=== PATIENT | female | born 1990 | race Caucasian/White ===

== ENCOUNTER 2021-07-22 19:25 | Emergency (ER) | payer OTHER, SELFPAY ==
--- NOTE | ~2021-07-22 | CT_ITS ---
EXAMINATION: CT HEAD WITHOUT CONTRAST CLINICAL INFORMATION: Headache COMPARISON: None TECHNIQUE: Contiguous axial imaging was performed from the skull base to vertex without intravenous administration of contrast. This CT examination was performed using dose optimization techniques as appropriate, variously including the following: *Automated exposure control *Adjustment of mA and/or kV according to patient size (this includes techniques or standardized protocols for targeted exams where dose is matched to indication/reason for exam; i.e. extremities or head) *Use of iterative reconstruction technique DLP: 816 mGy-cm FINDINGS: There is no evidence of acute intracranial hemorrhage or territorial infarction. No abnormal mass effect or midline shift is seen. Kate to white matter differentiation is well preserved. No extra-axial fluid collections are identified. The ventricles are normal in size. There is no abnormal attenuation within the brain parenchyma. The osseous structures and soft tissues are normal. The mastoid air cells and visualized portions of the paranasal sinuses are well aerated. CT/CT head/brain wo con IMPRESSION: No acute intracranial pathology.
[2021-07-22 19:36] VITALS: BP 113/68; PULSE 76; RESP 16; TEMP 36.6; O2SAT 96; BMI 28.3
--- NOTE | 2021-07-22 19:44 | ED_ITS ---
HPI - Chest Pain General Chief Complaint: ETOH/Substance Use Stated Complaint: DRUG ABUSE Time Seen by Provider: 07/22/21 19:43 Source: patient Mode of arrival: EMS Limitations: no limitations History of Present Illness HPI narrative: 31-year-old female presents to the emergency department with headache, dizziness status post snorting 30 mg of Percocet just prior to her arrival. Patient tells me that she snorted this to help her with her toothache. She tells me she did not mean to harm herself, she told me was stronger than she thought. She tells me that this was not prescribed to her, she got it from [facility]. She tells me that she passed out, unsure if she hit her head or loss consciousness. At this time she is reporting a severe 10/10 headache, denies vision changes, weakness, shortness of breath or vomiting. She denies visual, auditory and tactile hallucinations. Denies SI and HI. Onset (ago): day(s) (1) Timing of current episode: constant Prior episodes: No Severity: severe Relieving factors: nothing Exacerbating factors: nothing Associated symptoms: nausea Related Data Previous Rx's Medication Instructions Recorded naloxone 4 mg/actuation nasal 4 mg INTRANASAL Q2M PRN #1 ea 07/22/21 spray (Narcan) Allergies Allergy/AdvReac Type Severity Reaction Status Date / Time amoxicillin [Amoxicillin] Allergy Unknown UNKNOWN Verified 07/22/21 19:46 codeine [CODEINE] Allergy Unknown FACIAL Verified 07/22/21 19:46 SWELLING Codeine Phosphate Allergy Unknown Unknown Uncoded 07/22/21 19:46 Review of Systems Verdana 4l Review of Systems: Verdana 4d Verdana 4d Constitutional : No Weight loss, No Fever, No Chills, No Fatigue, No Malaise ENT/Mouth : No sore throat, No Rhinorrhea Eyes: No Eye Pain, No Swelling, No Redness Cardiovascular : No Chest Pain, No SOB, No Dyspnea on Exertion, No OrthopneaOrthopnea, No Edema, No Palpitations Respiratory : No Cough, No Sputum, No Wheezing Gastrointestinal : + Nausea, No Vomiting, No Diarrhea, No Constipation, No abdominal Pain, No Hematochezia, No Melena Genitourinary : No Dysuria, No Urinary Frequency, No Hematuria, Musculoskeletal : No joint pain, No Myalgias, No Joint Swelling Skin : No Skin Lesions, No rash Neuro : No Weakness, No Numbness, No Dizziness, + Headache All other systems reviewed and are negative Yes all other systems are reviewed and are negative [facility] Past Medical History Attestation statement: The following information was validated with the patient. Source: old records reviewed and nursing notes reviewed Social History Social History Advance Directives: No Advance Directives Information Provided: Yes Physical Exam Verdana 4l Vital Signs: Verdana 4d Verdana 4d Vital Signs: Verdana 4d Verdana 4Bd Last Vital Signs Verdana 4d Clinical Project Coordinator New 4d Clinical Project Coordinator New 4d Temp 97.9 F 07/22/21 19:36 Clinical Project Coordinator New 4d Pulse 76 07/22/21 19:36 Clinical Project Coordinator New 4d Resp 16 07/22/21 19:36 BP 113/68 07/22/21 19:36 Pulse Ox 96 07/22/21 19:36 BMI result Body Mass Index 28.3 VSS Appearance: Alert.? Oriented X3.? No acute distress.? Head: Normocephalic, atraumatic, no step-offs or deformities Eyes: Pupils equal, round and reactive to light.? ENT: Pharynx normal.? Neck: Normal inspection.? Neck supple.? CVS: Normal heart rate and rhythm.? Pulses normal.? Respiratory: No respiratory distress.? Breath sounds normal.? Abdomen: Soft and nontender.? Skin: Skin warm and dry.? Normal skin color.? Normal skin turgor.? Extremities: No lower extremity edema.? No calf ttp. 5/5 strength to bilateral upper and lower extremities Back: No midline tenderness, no C-spine tenderness, full range of motion, no CVA tenderness bilaterally Neuro: Oriented X 3.? No motor deficit.? No sensory deficit. Normal nyevut-gr-yvat, aeni-by-glkf, hand agent strength. Course Reevaluation(s) Reevaluation #1: CT of the head negative. patient awake, alert ambulating with a steady gait. Doesn't want detox, and tells me she just took it for pain. I educated her that this is not safe and this can cause . She understands and tells me she doesnt plan on doing this again. Comfortable with DC home. Narcan sent to pharmacy. Time: 21:12 MDM - Chest Pain MDM Narrative Medical decision making narrative: 2010 31 yo female presents with headache, dizziness, question syncopal episode and nausea s/p snorting 30 mg of percocet PE benign History and PE not consistent with cerebellar infarct/stroke Plan- Ct scan, LAN, COVID. Will rule out ICH although unlikley Medical Records Data Attestation: I reviewed the patient's medical records. Lab Data Attestation: I reviewed the patient's lab results. Labs: Lab Results 07/22/21 Range/Units 20:55 COVID-19 ([facility]) Negative (Negative) COVID-19 Clin Com See Note Imaging Data CT scan - head: Attestation: I personally reviewed and interpreted this imaging study as follows: Radiologist's impression: FINDINGS: There is no evidence of acute intracranial hemorrhage or territorial infarction. No abnormal mass effect or midline shift is seen. Kate to white matter differentiation is well preserved. No extra-axial fluid collections are identified. The ventricles are normal in size. There is no abnormal attenuation within the brain parenchyma. The osseous structures and soft tissues are normal. The mastoid air cells and visualized portions of the paranasal sinuses are well aerated. ? CT/CT head/brain wo con IMPRESSION: No acute intracranial pathology. Critical Care Time Critical Care Time Critical Care Time: No Discharge Plan Discharge Clinical Impression: Drug abuse, Opiate abuse, episodic Patient Disposition: Home, Self-Care Instructions: Prescription Narcotic Overdose (ED) Additional Instructions: Take your medications as prescribed. If you were prescribed antibiotics today, it is important that you take your medication to their entirety, do not skip any doses, do not finish them early. Follow-up with your primary care provider this week. Return to the emergency department with new or worsening symptoms. In case of emergency call 911 Narcan was sent to your pharmacy [facility] on [address]. Prescriptions: New naloxone [Narcan] 4 mg/actuation spray,non-aerosol 4 mg intranasal Q2M PRN (Reason: opioid overdose) Qty: 1 0RF Rx Instructions: spray 1 dose into ONE nostril; alternate nostrils w each dose until help arrives Referrals: Soraida Oliveira [Emergency Nurse] - 2 days
[2021-07-22 21:15] LABS: COVID-19 Test Negative (Negative); IDNOW Serial# 9DD0AD1C
[2021-07-22 21:56] VITALS: BP 104/56; PULSE 74; RESP 15; TEMP 36.6; O2SAT 97
[2021-07-22] MEDS: Ondansetron ODT 4 MG TAB.RAPDIS TRANSLINGU (22:08)
[2021-07-22] MEDS: Ketorolac Tromethamine 30 MG/ML VIAL IM (22:08)
== END 2021-07-22 22:12 | disposition home or self-care (01) ==
PROVIDERS: Physician Assistant; Emergency Provider Emergency Medicine Emergency Medical Services
DX: T40.1X1A Poisoning by heroin, accidental (unintentional), initial encounter (principal); Y92.9 Unspecified place or not applicable; R51.9 Headache, unspecified; F11.19 Opioid abuse with unspecified opioid-induced disorder; Z20.822 Contact with and (suspected) exposure to COVID-19; Z79.899 Other long term (current) drug therapy
CPT/HCPCS: 70450; 87635; 96372; 99284; J1885

== ENCOUNTER 2023-12-26 08:57 | Emergency (ER) | payer OTHER, SELFPAY ==
--- NOTE | ~2023-12-26 | XR_ITS ---
EXAMINATION: XR CHEST CLINICAL INFORMATION: URI symptoms. COMPARISON: 08/12/2017 TECHNIQUE: Frontal view of the chest was obtained. FINDINGS: The lungs are well expanded. No focal consolidation. No pleural effusion. Cardiac silhouette is unchanged. XR/XR chest 1V IMPRESSION: No acute abnormality.
[2023-12-26 08:59] VITALS: BP 132/81; PULSE 75; RESP 16; TEMP 36.5; O2SAT 98; BMI 26.6
[2023-12-26 09:21] VITALS: BP 120/80; PULSE 76; RESP 18; TEMP 36.2; O2SAT 98
--- NOTE | 2023-12-26 09:55 | PC.NURSE ---
swabs obtained, xr obtained
--- NOTE | 2023-12-26 09:56 | ED_ITS ---
HPI - General Adult General Chief complaint: Upper Respiratory Symptoms Stated complaint: Sore throat, congestion Time Seen by Provider: 12/26/23 09:34 Source: patient Mode of arrival: ambulatory Limitations: no limitations History of Present Illness ED Provider: Dimitrios Real pA-C HPI narrative: 33 yold female with no pmh presents to the ED for URI symptoms for 1 week. Patient states sore throat, cough, nasal congestion, and body aches for 1 week. Patient denies any chest pain or shortness of breath. Patient denies any pleurisy, leg swelling, calf pain, coughing up blood. Related Data Previous Rx's ?Medication ?Instructions ?Recorded naloxone 4 mg/actuation nasal 4 mg intranasal Q2M PRN opioid 07/22/21 spray (Narcan) overdose #1 ea cephalexin 500 mg capsule 500 mg PO QID 7 days #28 caps 12/26/23 naproxen 500 mg tablet 500 mg PO BID PRN pain 7 days #14 12/26/23 tabs Allergies Allergy/AdvReac Type Severity Reaction Status Date / Time amoxicillin [Amoxicillin] Allergy Unknown UNKNOWN Verified 12/26/23 09:00 codeine [CODEINE] Allergy Unknown FACIAL Verified 12/26/23 09:00 SWELLING Codeine Phosphate Allergy Unknown Unknown Uncoded 12/26/23 09:00 Review of Systems Review of Systems: Sore throat, cough, nasal congestion Yes all other systems are reviewed and are negative [facility] Social History Social History Advance Directives: No Advance Directives Information Provided: No Physical Exam ED Vital Signs: Vital Signs - 24 hr 12/26/23 08:59 12/26/23 09:21 Temperature 97.7 F 97.2 F Pulse Rate 75 76 Respiratory Rate 16 18 Blood Pressure 132/81 120/80 Pulse Oximetry 98 98 Oxygen Delivery Method Room Air Room Air BMI result Body Mass Index 26.6 Const Orientation/consciousness: patient oriented x3 HENMT Head: Yes normal to inspection, Yes No palpable skull fracture present, Yes normocephalic and Yes atraumatic Ears: hearing grossly normal bilaterally, external ears normal, TM's normal bilaterally, TM normal on the right, TM normal on the left, EAC's normal, mastoids normal and no periauricular adenopathy Throat: Yes posterior oropharynx normal, Yes tonsils normal and Yes uvula midline Eyes General: appearance normal, both eyes and all related structures Neck Neck: Yes normal visual inspection, Yes full ROM, Yes no lymphadenopathy, Yes no meningeal signs, Yes trachea midline, Yes supple, No anterior neck swelling and No tender Chest Chest palpation & inspection: normal inspection of the chest and normal palpation of entire chest wall Resp Effort & Inspection: normal respiratory effort and able to speak in complete sentences Auscultation: clear to auscultation bilaterally Cardio Jugular venous distension: no JVD Heart sounds: S1 normal heart sound present and S2 normal heart sound present GI Inspection: Yes normal to inspection Palpation (GI): Soft to palpation, not firm, nontender, no guarding and not rigid General: No CVA tenderness and Yes no CVA tenderness Back/Spine/Pelvis Back: no CVA tenderness, No CVA tenderness and No back tenderness Skin General skin exam: no rashes or lesions noted, elasticity normal and turgor normal Neuro General: patient oriented x3, gait normal, tone normal, moves all extremities, Normal light touch and pain sensation, no meningeal signs, no focal motor deficits, CN's II-XI intact bilaterally and normal sensation to monofilament Extrem General: Yes normal to inspection, Yes full ROM and Yes capillary refill normal Psych Appearance: grossly normal, well kempt and not disheveled Medical Decision Making Medical Decision Making [facility] Narrative: 33 year female presents to ED for URI symptoms for 1 week. Patient denies any chest pain or shortness of breath. SARs strep ordered. X-ray ordered. 11:30am: patient's chest x-ray negative. Strep is positive. Negative COVID, influenza, and RSV.. Patient will be discharged with antibiotics. Negative for signs of peritonsillar abscess, Luis's angina, retropharyngeal abscess. Patient explained worrisome signs and informed to return to the ED immediately. Differential Diagnosis Differential Diagnoses: The differential diagnosis associated with the presentation includes ( Strep, COVID, RSV, influenza,) Admission/Observation Consideration of admission/observation: Escalation of care including admission/observation considered Lab Data [facility] Lab Attestation statement: I reviewed the patient's lab results. Labs: Lab Results 12/26/23 Range/Units 09:30 Influenza Type A (PCR) NEGATIVE (Negative) Influenza Type B (PCR) NEGATIVE (Negative) RSV RNA Qual (PCR) NEGATIVE (Negative) SARS-CoV-2 RNA (RT-PCR) NEGATIVE (Negative) S. pyogenes GrpA ERIC Positive A (Negative) Independent Interpretation I performed an independent interpretation of an: Plain X-Ray Radiology Impression Discussion of test interpretation with radiology: I have reviewed the radiologist's reading. Independent Historian Clinical information obtained from an independent historian. History obtained from or confirmed by: Other (patient) External Record Review External record reviewed: Other (prior visits) Prescription Management I considered prescription management with: Antibiotic Discharge Plan Discharge Clinical Impression: Strep pharyngitis Patient Disposition: Home, Self-Care Instructions: Strep Throat (ED) Additional Instructions: you tested positive for strep. Due to allergy to amoxicillin you will be discharged with a 1st generation cephalosporin. Recommend follow-up with primary care provider. Return to the ED immediately for any sensation of throat swelling, drooling, change in voice, neck swelling, fever, chills, rash, or any other concerning symptoms. Prescriptions: New cephalexin 500 mg capsule 500 mg PO QID 7 Days Qty: 28 0RF naproxen 500 mg tablet 500 mg PO BID PRN (Reason: pain) 7 Days Qty: 14 0RF No Action naloxone [Narcan] 4 mg/actuation spray,non-aerosol 4 mg intranasal Q2M PRN (Reason: opioid overdose) Qty: 1 0RF Rx Instructions: spray 1 dose into ONE nostril; alternate nostrils w each dose until help arrives Stand Alone Forms: Work/School Release Interventions: ED Discharge Assessment Last Done: 12/26/23 11:48 Discharge Date/Time: 12/26/23 11:49 Print Language: Micronesian
[2023-12-26 10:12] LABS: IDNOW Serial# 08D9AD1C; Strep A Nucleic Acid Positive (Negative)
[2023-12-26 10:17] LABS: Influenza A PCR NEGATIVE (Negative); Influenza B PCR NEGATIVE (Negative); Resp Syncy Virus RNA Qual PCR NEGATIVE (Negative); SARS COV2 PCR INHOUSE NEGATIVE (Negative)
[2023-12-26 11:48] VITALS: BP 126/76; PULSE 75; RESP 18; TEMP 36.3; O2SAT 98
== END 2023-12-26 11:49 | disposition home or self-care (01) ==
PROVIDERS: Emergency Provider Emergency Medicine Emergency Medical Services
DX: J02.0 Streptococcal pharyngitis (principal); Z03.818 Encounter for observation for suspected exposure to other biological agents ruled out
CPT/HCPCS: 0241U; 71045; 87651; 99283

== ENCOUNTER 2025-02-19 20:43 | Emergency (ER) | payer OTHER, SELFPAY ==
[2025-02-19 20:45] VITALS: BP 152/97; PULSE 80; RESP 16; TEMP 36.9; O2SAT 99; BMI 23.3
--- OUTSIDE RECORDS SUMMARY | 2025-02-19 21:10 | XMS_ITS | Clinical Summary ---
Author Organization [facility] Address [address] [place] [address] Phone Care Team Providers Care Rougher Helper Name Role Phone Barbie Espinosa MD Primary Care Provider [phone] Immunizations Immunization Administration Dates Next Due DTP 02/13/1995, 1,1990,06/09,1990 HPV, Quadrivalent 05/20/2007 Hep B, ped/adol 02/28/2003,01/22/2002,05/30/2000 Hib (PRP-T) 03/13/1992, 1,1990,06/09 IPV 02/13/1995, 1,1990,04/13 MMR 02/13/1995,03/13/1992 Meningococcal Conj (Menactra) MCV4P 05/20/2007 Td (adult) (MBL), 2 Lf tetan us toxoid, PF, adsorbed 01/22/2002 Tdap 05/20/2007 Social History Tobacco Use Types Packs/Day Years Used Date Smoking Tobacco: Never Assessed Comments Unknown Sex and Gender Information Value Date Recorded Sex Assigned at Not on file Legal Sex Female 4:22 PM EDT Gender Identity Not on file Sexual Orientation Not on file Plan of Treatment Health Maintenance Due Date Last Done Comments Varicella Vaccines (1 of 2 - 13+ 2-dose series) 2003 HPV Vaccines (2 - 3-dose series) 06/17/2007 05/20/2007 DTaP,Tdap,and Td Vaccines (6 - Td or Tdap) 05/20/2017 05/20/2007, 01/22/2002, 02/13/1995, Additional history exists COVID-19 Vaccine ( season) 2024 Influenza Vaccines (#1) 2025 HIB Vaccines Completed 03/13/1992, 11/22, 1990, Additional history exists IPV Vaccines Completed 02/13/1995, 11/22, 1990, Additional history exists MMR Vaccines Completed 02/13/1995, 03/13/1992 Hepatitis B Vaccines Completed 02/28/2003, 01/22/2002, 05/30/2000 Meningococcal Vaccine Completed 05/20/2007 Hepatitis A Vaccines Aged Out No long er eligible based on patient's age to complete this topic Men B Vaccine Aged Out No longer elig ible based on patient's age to complete this topic Pneumococcal Vaccine Aged Out No long er eligible based on patient's age to complete this topic Care Teams Rougher Helper Relationship Specialty Start Date End Date Barbie Espinosa MD [address] [place] [address] [place] [id number] PCP - General 01/31/17
--- OUTSIDE RECORDS SUMMARY | 2025-02-19 21:10 | XMS_ITS | Encounter Summary ---
Author Organization [facility] Address [address] [place] [phone] Phone Care Team Providers Care Paralegal Assistant Name Role Phone Barbie Espinosa MD Primary Care Provider [phone] Encounter Details Date Type Department Care Team (Late st Contact Info) Description 02/06/2017 Conversion Encounter [facility] [place] [address] [place] [address] Social History Tobacco Use Types Packs/Day Years Used Date Smoking Tobacco: Never Assessed Comments Unknown Sex and Gender Information Value Date Recorded Sex Assigned at Not on file Legal Sex Female 4:22 PM EDT Gender Identity Not on file Sexual Orientation Not on file documented as of this encounter Plan of Treatment Not on file documented as of this encounter Visit Diagnoses Not on filedocumented in this encounter Care Teams Paralegal Assistant Relationship Specialty Start Date End Date Barbie Espinosa MD [address] [place] [address] PCP - General 01/31/17 documented as of this encounter
--- NOTE | 2025-02-19 22:29 | PC.NURSE ---
Pt seen abulating out of the ed with even and steady gait and no distress noted. RN asked patient if she had discharge papers and she replied loudly No i'm leaving . PT later seen using WR phone yelling at someone to come pick her up
--- NOTE | 2025-02-19 23:37 | ED_ITS ---
HPI - General Adult General Chief complaint: Dental/Oral Stated complaint: tooth pain Time Seen by Provider: 02/19/25 21:50 Related Data Previous Rx's ?Medication ?Instructions ?Recorded naloxone 4 mg/actuation nasal 4 mg intranasal Q2M PRN opioid 07/22/21 spray (Narcan) overdose #1 ea cephalexin 500 mg capsule 500 mg PO QID 7 days #28 cap s 12/26/23 naproxen 500 mg tablet 500 mg PO BID PRN pain 7 day s #14 12/26/23 tabs Allergies Allergy/AdvReac Type Severity Reaction Status Date / Time amoxicillin (Amoxicillin) Allergy Unknown UNKNOWN Verified 02/19/25 20:47 codeine (CODEINE) Allergy Unknown FACIAL Verified 02/19/25 20:47 SWELLING Codeine Phosphate Allergy Unknown Unknown Uncoded 02/19/25 20:47 PMFSH Social History Social History Advance Directives: No Advance Directives Information Provided: No Do you have a plan to hurt others: No Plan Physical Exam ED Vital Signs: Vital Signs - 24 hr 02/19/25 20:45 Temperature 98.4 F Pulse Rate 80 Respiratory Rate 16 Blood Pressure 152/97 H Pulse Oximetry 99 Oxygen Delivery Method Room Air BMI result Body Mass Index 23.3 Course Reevaluation(s) Reevaluation #1: The patient has been in the emergency department for an hour and 15 minutes, she began to complain about when she was going to be seen, a critical patient came in that required attention prior to seeing this patient. She left without being seen. Discharge Plan Discharge Clinical Impression: Pain, dental Patient Disposition: Left W/O Completing Treatment Prescriptions: No Action naloxone [Narcan] 4 mg/actuation spray,non-aerosol 4 mg intranasal Q2M PRN (Reason: opioid overdose) Qty: 1 0RF Rx Instructions: spray 1 dose into ONE nostril; alternate nostrils w each dose until help arrives cephalexin 500 mg capsule 500 mg PO QID 7 Days Qty: 28 0RF naproxen 500 mg tablet 500 mg PO BID PRN (Reason: pain) 7 Days Qty: 14 0RF Discharge Date/Time: 02/19/25 22:55
== END 2025-02-19 22:55 | disposition left against medical advice (07) ==
PROVIDERS: Emergency Provider Emergency Medicine
DX: K08.89 Other specified disorders of teeth and supporting structures (principal)
CPT/HCPCS: 99281